=== PATIENT | male | born 1970 | race Caucasian/White ===

== ENCOUNTER 2017-05-02 12:38 | Emergency (ER) | payer SELFPAY ==
[~2017-05-02 12:38] MED LIST: ANTIVERT/2525 MG PO; GOOD SENSE ASPI81 M3 PO; LIPITOR40 MG PO; MOTRIN800 MG PO
[2017-05-02 16:09] LABS: BASOPHIL % 0.6 % (0-2); PLATELET COUNT 191 x10^3mcL (130-400); RED CELL DISTRIBUTION WIDTH 13.4 % (11.5-14.5)
[2017-05-02 16:31] LABS: CALCIUM 8.8 mg/dL (8.5-10.1); CARBON DIOXIDE 28.1 mmol/L (21-32); CHLORIDE SERUM 105 mmol/L (98-107); CREATININE SERUM 0.9 mg/dL (0.7-1.3); GFR1 > 60 mL/min; GLUCOSE SERUM 95 mg/dL (74-106); POTASSIUM SERUM 4.4 mmol/L (3.5-5.1); SODIUM SERUM 139 mmol/L (136-145)
[2017-05-02 16:35] LABS: ALBUMIN 3.6 g/dL (3.4-5.0); ALKALINE PHOSPHATASE 88 U/L (46-116); ALT/SGPT 25 U/L (16-63); AST/SGOT 18 U/L (15-37); BILIRUBIN TOTAL 0.42 mg/dL (0.20-1.00); TOTAL PROTEIN, SERUM 7.5 g/dL (6.4-8.2)
[2017-05-02 18:18] VITALS: BP 117/69
== END 2017-05-02 18:15 | disposition home or self-care (01) ==
LOC: ED 12:38
PROVIDERS: Emergency Medicine
DX: G44.209 Tension-type headache, unspecified, not intractable (principal); F41.9 Anxiety disorder, unspecified; Z79.899 Other long term (current) drug therapy
CPT/HCPCS: 36415; Q0092

== ENCOUNTER 2017-05-05 14:42 | Emergency (ER) | payer SELFPAY ==
[2017-05-05 16:20] VITALS: BP 120/81
== END 2017-05-05 16:20 | disposition home or self-care (01) ==
LOC: ED 14:42
DX: Z00.00 Encounter for general adult medical examination without abnormal findings (principal)

== ENCOUNTER 2018-03-23 17:59 | Emergency (ER) | payer MEDICAID ==
[~2018-03-23] VITALS: Ht 167.6 cm; Wt 64.5 kg
[2018-03-23 18:34] VITALS: Ht 167.6 cm; Wt 64.5 kg
[2018-03-23 20:23] VITALS: BP 105/58
== END 2018-03-23 23:01 | disposition home or self-care (01) ==
LOC: ED 17:59
DX: R10.13 Epigastric pain (principal)

== ENCOUNTER 2020-06-22 22:35 | Emergency (ER) | payer MEDICAID ==
[~2020-06-22] VITALS: Ht 167.6 cm; Wt 70.8 kg
[~2020-06-22 22:35] MED LIST changes: +FLAGYL500 MG PO; +LEVAQUIN750 MG PO; +NORCO1 TA2 PO
[2020-06-22 22:44] VITALS: Ht 167.6 cm; Wt 70.8 kg
[2020-06-22 23:44] VITALS: BP 119/77
== END 2020-06-22 23:44 | disposition home or self-care (01) ==
LOC: ED 22:35
DX: S91.312A Laceration without foreign body, left foot, initial encounter (principal); S90.32XA Contusion of left foot, initial encounter; E78.00 Pure hypercholesterolemia, unspecified; W20.8XXA Other cause of strike by thrown, projected or falling object, initial encounter; Y93.89 Activity, other specified; Y92.89 Other specified places as the place of occurrence of the external cause; Y99.8 Other external cause status
CPT/HCPCS: J2001; Q0092

== ENCOUNTER 2020-06-29 13:38 | Emergency (ER) | payer MEDICAID ==
[~2020-06-29] VITALS: Ht 167.6 cm; Wt 71.2 kg
[2020-06-29 13:47] VITALS: Ht 167.6 cm; Wt 71.2 kg
[2020-06-29 14:10] VITALS: BP 121/73
== END 2020-06-29 14:10 | disposition home or self-care (01) ==
LOC: ED 13:38
DX: S91.312D Laceration without foreign body, left foot, subsequent encounter (principal); E78.00 Pure hypercholesterolemia, unspecified; X58.XXXD Exposure to other specified factors, subsequent encounter

== ENCOUNTER 2020-07-13 11:43 | Emergency (ER) | payer MEDICAID ==
[~2020-07-13] VITALS: Ht 170.2 cm; Wt 110.7 kg
[2020-07-13 11:50] VITALS: Ht 170.2 cm; Wt 110.7 kg
[2020-07-13 13:03] LABS: CARBON DIOXIDE 29.1 mmol/L (21-32); CHLORIDE SERUM 103 mmol/L (98-107); CREATININE SERUM 0.9 mg/dL (0.7-1.3); GFR1 > 60 mL/min; GLUCOSE SERUM 129 mg/dL (74-106); POTASSIUM SERUM 3.9 mmol/L (3.5-5.1); SODIUM SERUM 139 mmol/L (136-145)
[2020-07-13 13:08] LABS: ALBUMIN 3.5 g/dL (3.4-5.0); ALKALINE PHOSPHATASE 86 U/L (46-116); ALT/SGPT 33 U/L (16-63); AST/SGOT 37 U/L (15-37); BILIRUBIN TOTAL 0.4 mg/dL (0.20-1.00); TOTAL PROTEIN, SERUM 7.3 g/dL (6.4-8.2)
[2020-07-13 13:19] LABS: BASOPHIL % 0.3 % (0-2); PLATELET COUNT 194 x10^3mcL (130-400); RED CELL DISTRIBUTION WIDTH 13.5 % (11.5-14.5)
[2020-07-13 14:22] VITALS: BP 118/79
== END 2020-07-13 14:22 | disposition home or self-care (01) ==
LOC: ED 11:43
PROVIDERS: Emergency Medicine
DX: K80.20 Calculus of gallbladder without cholecystitis without obstruction (principal); E78.00 Pure hypercholesterolemia, unspecified; Z90.89 Acquired absence of other organs
CPT/HCPCS: Q0092